=== PATIENT | female | born 1940 | race Hispanic/Latino ===

== ENCOUNTER 2021-03-04 13:27 | Emergency (ER) | payer MEDICARE ==
[~2021-03-04] VITALS: Ht 152.4 cm; Wt 68.0 kg
[2021-03-04] MEDS ORDERED: CASIRIVIMAB/IMDEVIMAB 10 ML in SODIUM CHLORIDE 0.9% 100 ML IV ONE (14:15)
[2021-03-04] MEDS ORDERED: SODIUM CHLORIDE 0.9% 100 ML ONE (14:21)
== END 2021-03-04 15:02 | disposition home or self-care (01) ==
LOC: ER 13:36
DX: U07.1 COVID-19 (principal); I10 Essential (primary) hypertension; E78.5 Hyperlipidemia, unspecified; E03.9 Hypothyroidism, unspecified
CPT/HCPCS: 99283; J7050